=== PATIENT | male | born 1985 | race Hispanic/Latino ===

== ENCOUNTER 2019-08-03 08:26 | Inpatient (IN) | payer OTHER ==
[~2019-08-03] VITALS: Ht 182.9 cm; Wt 100.5 kg
[2019-08-03] MEDS ORDERED: SODIUM CHLORIDE 0.9% 1000ML 1,000 ML IV ONE (09:19)
[2019-08-03] MEDS ORDERED: ACETAMINOPHEN 325 MG TAB ONE (09:19)
[2019-08-03 09:32] LABS: BASOPHILS % (AUTO) 0.3 % (0.0-5.0); EOSINOPHILS % (AUTO) 0.8 % (0.0-8.0); HEMATOCRIT 34.1 % (42-54); MEAN CORPUSCULAR HEMOGLOBIN 27.8 pg (27.0-33.0); MEAN CORPUSCULAR HGB CONC 33.7 g/dL (32.0-36.0); MEAN CORPUSCULAR VOLUME 82.6 fL (79-99); MONOCYTES % (AUTO) 6.5 % (3.0-13.0); NEUTROPHILS % (AUTO) 82.7 % (40.0-77.0); PLATELET COUNT (AUTO) 258 K/uL (130-400); RED BLOOD CELL COUNT(AUTO) 4.13 MIL/uL (4.50-6.20); RED CELL DISTRIBUTION WIDTH 13.2 % (11.0-15.5)
[2019-08-03 09:52] LABS: CREATININE 1.6 mg/dL (0.5-1.5); POTASSIUM 3.6 mmol/L (3.5-5.1)
[2019-08-03 09:56] LABS: ALBUMIN 1.9 g/dL (3.5-5.0); BILIRUBIN,TOTAL 0.5 mg/dL (0.2-1.0); TOTAL PROTEIN, SERUM 8.1 g/dL (6.0-8.3)
[2019-08-03] MEDS ORDERED: ZOSYN 3.375GM+NS 50ML 50 ML IV ONE (10:46)
[2019-08-03] MEDS: LACTATED RINGERS 1000ML 1,000 ML IV SCH (11:06)
[2019-08-03] MEDS ORDERED: LACTULOSE 20 GM/30 ML UDCUP PO PRN (11:15)
[2019-08-03] MEDS ORDERED: NITROGLYCERIN 0.4 MG SL TAB SL PRN (11:15)
[2019-08-03] MEDS ORDERED: MAG HYDROX/AL HYDROX/SIMETH ES 30 ML SUSP UDCUP PO PRN (11:15)
[2019-08-03] MEDS ORDERED: VANCOMYCIN PROTOCOL PER PHARMACY IV SCH (11:15)
[2019-08-03] MEDS ORDERED: ONDANSETRON HCL 4 MG/2 ML VIAL IV PRN (11:15)
[2019-08-03] MEDS ORDERED: ACETAMINOPHEN 325 MG TAB PO PRN (11:15)
[2019-08-03] MEDS ORDERED: DIPHENHYDRAMINE HCL 25 MG CAPSULE PO PRN (11:15)
[2019-08-03] MEDS ORDERED: GUAIFENESIN-DM 200/20 MG 10 ML PO PRN (11:15)
[2019-08-03] MEDS ORDERED: DiphenhydrAMINE HCL 50 MG/ML VIAL IV PRN (11:15)
[2019-08-03] MEDS: ZOSYN 3.375GM+NS 50ML 50 ML IV SCH ×2 (11:15→20:39)
[2019-08-03] MEDS: INSULIN LISPRO 100 UNIT/ML 3ML SQ SCH ×2 (11:30→17:00)
[2019-08-03 11:38] LABS: HEMOGLOBIN A1C 9.2 % (4.0-6.0)
[2019-08-03 11:42] LABS: CRP QUANTITATIVE 322.8 mg/L (0.00-9.0)
[2019-08-03] MEDS ORDERED: VANCOMYCIN 1.5 GM in SODIUM CHLORIDE 0.9% 250 ML IV SCH (12:00)
[2019-08-03] MEDS: VANCOMYCIN 1.5 GM in SODIUM CHLORIDE 0.9% 250 ML IV SCH ×3 (12:00)
[2019-08-03] MEDS ORDERED: COMPOUND IV REFRIGERATED 1 EACH IVSOLN MISC PRN (12:15)
[2019-08-03] MEDS ORDERED: LACTATED RINGERS 1000ML 1,000 ML IV ONE (13:26)
[2019-08-03] MEDS ORDERED: ASPIRIN 325 MG TABLET ONE (15:22)
[2019-08-03 16:00] VITALS: BP 169/85
--- NOTE | 2019-08-03 17:45 | NUR ---
DR. CRUZ AND DR. MONTILLA AWARE OF CASE STATES WILL ROUND AT 1800
[2019-08-03 19:00] VITALS: BP 167/86
[2019-08-03] MEDS ORDERED: NIFEDIPINE ER 30 MG TAB PO SCH (20:00)
[2019-08-03] MEDS: HEPARIN SODIUM 5000UNIT/ML 1ML VIAL SQ SCH (20:37)
[2019-08-03] MEDS: FAMOTIDINE 20MG TAB 20 MG TAB PO SCH (20:38)
[2019-08-03] MEDS: INSULIN GLARGINE 100 UNITS/ML 10 ML VIAL SQ SCH (20:38)
[2019-08-03] MEDS: ASPIRIN 81MG TAB.CHEW PO SCH (21:40)
[2019-08-03 23:00] VITALS: BP 150/92
[2019-08-03] MEDS: ACETAMINOPHEN 325 MG TAB PO PRN (23:36)
[2019-08-03] MEDS ORDERED: VANCOMYCIN 1GM+NS 250ML 500 ML IV ONE (23:59)
[2019-08-04] VITALS (28 sets, daily range): BP systolic 117–149; BP diastolic 64–98
[2019-08-04] MEDS: VANCOMYCIN 1.5 GM in SODIUM CHLORIDE 0.9% 250 ML IV SCH ×3 (00:01→20:23)
[2019-08-04] MEDS: LACTATED RINGERS 1000ML 1,000 ML IV SCH ×3 (03:59→17:38)
[2019-08-04] MEDS: ZOSYN 3.375GM+NS 50ML 50 ML IV SCH ×3 (03:59→20:18)
[2019-08-04 04:29] LABS: BASOPHILS % (AUTO) 0.2 % (0.0-5.0); EOSINOPHILS % (AUTO) 2.1 % (0.0-8.0); LYMPHOCYTES % (AUTO) 13.9 % (21.0-51.0); MEAN CORPUSCULAR HEMOGLOBIN 27.8 pg (27.0-33.0); MEAN CORPUSCULAR HGB CONC 33.4 g/dL (32.0-36.0); MEAN CORPUSCULAR VOLUME 83.1 fL (79-99); NEUTROPHILS % (AUTO) 76.2 % (40.0-77.0); PLATELET COUNT (AUTO) 246 K/uL (130-400); RED BLOOD CELL COUNT(AUTO) 3.49 MIL/uL (4.50-6.20); RED CELL DISTRIBUTION WIDTH 13.2 % (11.0-15.5); WHITE BLOOD COUNT (AUTO) 9.7 K/uL (4.8-10.8)
[2019-08-04 04:41] LABS: ALBUMIN 1.5 g/dL (3.5-5.0); BILIRUBIN,TOTAL 0.4 mg/dL (0.2-1.0); CREATININE 1.3 mg/dL (0.5-1.5); POTASSIUM 3.3 mmol/L (3.5-5.1); TOTAL PROTEIN, SERUM 7.1 g/dL (6.0-8.3)
--- NOTE | 2019-08-04 04:55 | NUR ---
potassium: 3.3 Reported to on-call hospitalist ( NIKHIL Bhatti) with an order to place pt. on Half Potassium NPO protocol.
[2019-08-04] MEDS ORDERED: LIDOCAINE HCL-MPF 1% 2ML VIAL IV PRN ×2 (05:00→18:45)
[2019-08-04] MEDS ORDERED: POTASSIUM CHLORIDE 10MEQ/100ML 100 ML IV PRN ×2 (05:00→18:45)
[2019-08-04] MEDS ORDERED: POTASSIUM CHLORIDE 10MEQ/100ML 100 ML IV ONE (05:14)
[2019-08-04] MEDS ORDERED: LIDOCAINE HCL-MPF 1% 2ML VIAL ONE (05:15)
[2019-08-04] MEDS: INSULIN LISPRO 100 UNIT/ML 3ML SQ SCH ×3 (08:00→17:37)
[2019-08-04] MEDS: NIFEDIPINE ER 30 MG TAB PO SCH (08:02)
[2019-08-04] MEDS ORDERED: BUPIVACAINE/PF 0.5% 10ML VIAL ONE (08:05)
[2019-08-04] MEDS ORDERED: LIDOCAINE HCL 1% MDV 50ML VIAL ONE (08:05)
--- NOTE | 2019-08-04 08:45 | NUR ---
TO SURGERY, VIA BED ,WITH STAFF AT THE BEDSIDE FOR PROCEDURE TO HIS LT FOOT. REVIEW . CONSENT,
[2019-08-04] MEDS ORDERED: MIDAZOLAM HCL 1 MG/ML 2ML VIAL ONE (08:55)
[2019-08-04] MEDS ORDERED: GLYCOPYRROLATE 1 MG/5 ML SYRINGE ONE (08:56)
[2019-08-04] MEDS ORDERED: KETAMINE 50MG/ML SYRINGE 50 MG/ML DISP.SYRIN IV ONE (08:57)
[2019-08-04] MEDS ORDERED: PROPOFOL 1000 MG/100 ML 100 ML IV ONE (08:57)
[2019-08-04] MEDS: ASPIRIN 81MG TAB.CHEW PO SCH (09:00)
[2019-08-04] MEDS: FAMOTIDINE 20MG TAB 20 MG TAB PO SCH ×2 (09:00→20:24)
[2019-08-04] MEDS: HEPARIN SODIUM 5000UNIT/ML 1ML VIAL SQ SCH ×2 (09:00→20:20)
[2019-08-04] MEDS ORDERED: FENTANYL CITRATE PF 50 MCG/1 ML 2ML VIAL ONE (10:00)
--- NOTE | 2019-08-04 13:00 | NUR ---
PT BACK FROM SURGERY,,PT LEFTFOOT DRSG DRY AND CLEAN,DENIES ANY PAIN , POSTOP V/S STARTED AND MONITOR AND CALL LIGHT IN REACH.. BED LEVEL DOWN . .
--- NOTE | 2019-08-04 17:31 | NUR ---
INITIAL Met with pt this afternoon to discuss dcp. Pt mentions that he lives w his spouse and mother. He mentions that prior to admission he was independent w ambulation and ADLs. Pt states he owns a walker, wc and sh chair. Pt states that his brother provides transportation where needed. He mentions that he feels safe and comfortable to return home at ne. He mentions that he usually purchases his medication in [facility]. Low income packet provided to pt. CM to continue to follow and wait for Md recommendations. Addendum: 08/04/19 at 1733 by KARMA LEON Amended: Links added.
[2019-08-04] MEDS ORDERED: POTASSIUM CHLORIDE 10% ELIXIR 20 MEQ/15 ML UDCUP PO PRN (18:45)
[2019-08-04] MEDS: INSULIN GLARGINE 100 UNITS/ML 10 ML VIAL SQ SCH (20:24)
[2019-08-05] VITALS (13 sets, daily range): BP systolic 121–147; BP diastolic 71–93
[2019-08-05] MEDS: ACETAMINOPHEN 325 MG TAB PO PRN (00:38)
[2019-08-05] MEDS: ZOSYN 3.375GM+NS 50ML 50 ML IV SCH ×3 (04:04→21:20)
[2019-08-05 04:46] LABS: BASOPHILS % (AUTO) 0.2 % (0.0-5.0); EOSINOPHILS % (AUTO) 1.7 % (0.0-8.0); HEMATOCRIT 28.6 % (42-54); LYMPHOCYTES % (AUTO) 15.9 % (21.0-51.0); MEAN CORPUSCULAR HEMOGLOBIN 27.5 pg (27.0-33.0); MEAN CORPUSCULAR HGB CONC 33.2 g/dL (32.0-36.0); MEAN CORPUSCULAR VOLUME 82.9 fL (79-99); NEUTROPHILS % (AUTO) 75.5 % (40.0-77.0); PLATELET COUNT (AUTO) 307 K/uL (130-400); RED BLOOD CELL COUNT(AUTO) 3.45 MIL/uL (4.50-6.20); RED CELL DISTRIBUTION WIDTH 13.2 % (11.0-15.5); WHITE BLOOD COUNT (AUTO) 8.8 K/uL (4.8-10.8)
[2019-08-05 04:56] LABS: INR 1.02 (0.85-1.15)
[2019-08-05 05:01] LABS: ALBUMIN 1.6 g/dL (3.5-5.0); BILIRUBIN,TOTAL 0.4 mg/dL (0.2-1.0); CREATININE 1.3 mg/dL (0.5-1.5); POTASSIUM 3.3 mmol/L (3.5-5.1); TOTAL PROTEIN, SERUM 7.2 g/dL (6.0-8.3)
[2019-08-05] MEDS: LACTATED RINGERS 1000ML 1,000 ML IV SCH ×2 (05:21→13:06)
[2019-08-05] MEDS: ASPIRIN 81MG TAB.CHEW PO SCH (08:17)
[2019-08-05] MEDS: NIFEDIPINE ER 30 MG TAB PO SCH (08:17)
[2019-08-05] MEDS: INSULIN LISPRO 100 UNIT/ML 3ML SQ SCH ×3 (08:27→17:00)
[2019-08-05] MEDS: HEPARIN SODIUM 5000UNIT/ML 1ML VIAL SQ SCH ×2 (09:00→21:05)
[2019-08-05] MEDS: FAMOTIDINE 20MG TAB 20 MG TAB PO SCH ×2 (09:00→21:20)
[2019-08-05] MEDS: VANCOMYCIN 1.5 GM in SODIUM CHLORIDE 0.9% 250 ML IV SCH ×2 (09:28→21:20)
[2019-08-05] MEDS ORDERED: TETANUS/DIPHTHERIA TOXOID [ADULT] 0.5 ML VIAL IM SCH (13:15)
--- NOTE | 2019-08-05 15:50 | NUR ---
TO SHEARING MACHINE TENDER , VIA BED ,STAFF AT THE BEDSIDE , REVIEW CONSENT .
[2019-08-05] MEDS ORDERED: LIDOCAINE HCL 2% 20ML ONE (16:02)
[2019-08-05] MEDS ORDERED: NICARDIPINE HCL 25 MG/10 ML ML IV ONE (16:02)
[2019-08-05] MEDS ORDERED: MIDAZOLAM HCL 1 MG/ML 2ML VIAL ONE (16:02)
[2019-08-05] MEDS ORDERED: FENTANYL CITRATE PF 50 MCG/1 ML 2ML VIAL ONE (16:02)
[2019-08-05] MEDS ORDERED: IODIXANOL 320 MG/ML 100 ML VIAL ONE ×2 (16:02→17:31)
[2019-08-05] MEDS ORDERED: HEPARIN SODIUM 1000UNIT/ML 10ML VIAL ONE (16:02)
[2019-08-05] MEDS ORDERED: NITROGLYCERIN 2 MG/VIAL VIAL IV ONE (16:02)
[2019-08-05] MEDS ORDERED: CLOPIDOGREL BISULFATE 300 MG TAB ONE (17:27)
[2019-08-05] MEDS ORDERED: SODIUM CHLORIDE 0.9% 1000ML 1,000 ML IV SCH (18:45)
--- NOTE | 2019-08-05 18:50 | NUR ---
PT BACK FROM MANAGER CARE, AFTER A ARTERIO GRAM, INSERTION SITE TO RT GROIN, DRSG IN PLACE AND DRY NOTED NO HEMATOMA AROUND INSERTION SITE, SOFT TO TOUCH,, WARMTH RT AND LT FOOT NOTED. WITH PULSES ABLE TO MONITOR TO HIS RT FOOT. LT FOOT COVERED WITH HIS INTITAL DRSG FROM SURGERY ON 08/04/2019 . DRY AND CLEAN . DENIES ANY PAIN, REVIEW DRBethel ORDERS PT EDUCATION REGARDING LYING FLAT, POSITION , SETUP WITH THE IVF OF .9NS . AT 100 CC HR . . POSTOP V/S STARTED , BED LEVEL DOWN AND CALL LIGHT IN REACH..
[2019-08-05] MEDS: INSULIN GLARGINE 100 UNITS/ML 10 ML VIAL SQ SCH (21:13)
[2019-08-05] MEDS: POTASSIUM CHLORIDE 20 MEQ ERTAB PO PRN (21:21)
[2019-08-06] VITALS (7 sets, daily range): BP systolic 138–161; BP diastolic 75–96
[2019-08-06] MEDS ORDERED: MORPHINE SULFATE 2 MG/ML 1ML SYG IVP PRN (01:15)
[2019-08-06] MEDS ORDERED: HYDROMORPHONE HCL 2 MG/ML VIAL IVP PRN (01:15)
[2019-08-06] MEDS: ZOSYN 3.375GM+NS 50ML 50 ML IV SCH ×3 (03:24→19:36)
--- NOTE | 2019-08-06 04:02 | NUR ---
1 bag of normal saline given post surgery as ordered.
[2019-08-06] MEDS: LACTATED RINGERS 1000ML 1,000 ML IV SCH ×3 (04:03→15:06)
[2019-08-06 04:24] LABS: BASOPHILS % (AUTO) 0.2 % (0.0-5.0); EOSINOPHILS % (AUTO) 2.1 % (0.0-8.0); HEMATOCRIT 26.3 % (42-54); LYMPHOCYTES % (AUTO) 13.9 % (21.0-51.0); MEAN CORPUSCULAR HEMOGLOBIN 27.4 pg (27.0-33.0); MEAN CORPUSCULAR HGB CONC 33.1 g/dL (32.0-36.0); MONOCYTES % (AUTO) 6.8 % (3.0-13.0); NEUTROPHILS % (AUTO) 75.8 % (40.0-77.0); PLATELET COUNT (AUTO) 315 K/uL (130-400); RED BLOOD CELL COUNT(AUTO) 3.17 MIL/uL (4.50-6.20); RED CELL DISTRIBUTION WIDTH 13.2 % (11.0-15.5); WHITE BLOOD COUNT (AUTO) 8.5 K/uL (4.8-10.8)
[2019-08-06 04:48] LABS: ALBUMIN 1.4 g/dL (3.5-5.0); BILIRUBIN,TOTAL 0.5 mg/dL (0.2-1.0); CREATININE 1.1 mg/dL (0.5-1.5); MAGNESIUM 2.1 mg/dL (1.80-2.40); POTASSIUM 3.5 mmol/L (3.5-5.1); TOTAL PROTEIN, SERUM 6.9 g/dL (6.0-8.3)
[2019-08-06] MEDS: POTASSIUM CHLORIDE 20 MEQ ERTAB PO PRN ×2 (04:57→23:48)
[2019-08-06] MEDS: INSULIN LISPRO 100 UNIT/ML 3ML SQ SCH ×3 (05:37→17:26)
--- NOTE | 2019-08-06 06:31 | NUR ---
doctor madhu present at the bedside and changed patient's left foot dressing. he ordered physical therapy to treat and no weight on left foot.
--- NOTE | 2019-08-06 08:00 | NUR ---
PT AAO X 3 REVIEW CARE, LTFOOT DRSG DRY AND CLEAN, DENIES ANY PAIN
[2019-08-06] MEDS: NIFEDIPINE ER 30 MG TAB PO SCH (08:42)
[2019-08-06] MEDS: FAMOTIDINE 20MG TAB 20 MG TAB PO SCH ×2 (08:42→19:37)
[2019-08-06] MEDS: CLOPIDOGREL BISULFATE 75 MG TAB PO SCH (08:42)
[2019-08-06] MEDS: ASPIRIN 81MG TAB.CHEW PO SCH (08:42)
[2019-08-06] MEDS: VANCOMYCIN 1.5 GM in SODIUM CHLORIDE 0.9% 250 ML IV SCH ×2 (08:43→19:37)
[2019-08-06] MEDS: HEPARIN SODIUM 5000UNIT/ML 1ML VIAL SQ SCH ×2 (10:50→19:28)
--- NOTE | 2019-08-06 11:34 | NUR ---
NUTRITION EDUCATION RD attempt at Nutrition education x2. Attempt to contact via phone secondary to isolation protocol, no answer x 2. RD to place [facility] Nutrition education in Pt chart. RD to follow up. Addendum: 08/06/19 at [address] RD Amended: Links added.
--- NOTE | 2019-08-06 11:43 | NUR ---
RD NOTIFICATION Pt admitted with osteomyelitis and foot gangrene. Pt is s/p transmetatarsal amputation per EMR. Diet advanced to Heart Healthy. No report of GI distress. RD to monitor PO intake. Pt with Contact isolation; RD attempt at Tele-Nutrition education x2-no answer. Recommend 75gm CCD diet modification Recommend Cecil BID, 500mg Vit C (QD), 220mg ZnSO4 (QD) for wound healing support x2 attempts at Tele-Nutrition Education, no answer. RD to place Education materials in Pt chart Recommend 60mL ProMod QD RD to continue to monitor. Please notify as additional nutrition concerns arise. Thank you. Addendum: 08/06/19 at [address] RD Amended: Links added.
--- NOTE | 2019-08-06 11:50 | NUR ---
BLOOD SUGAR OF 99, PT HAS HUMALOG .5 UNITS . SQ SCHELD DOSE. STATED IF HE COULD SKIP . THIS DOSE, .STATED THAT HE FEEL FUNNY. CONT TO MONITOR .AND SEE WHAT IT IS THIS PM .
[2019-08-06] MEDS: INSULIN GLARGINE 100 UNITS/ML 10 ML VIAL SQ SCH (19:29)
--- NOTE | 2019-08-06 20:31 | NUR ---
doctor lozano at the bedside. he used doppler to check patient's left dorsalis pedis pulse at 2+. he will speak with doctor meyer about discharge. plavix and aspirin for 3 months
[2019-08-06] MEDS: ACETAMINOPHEN 325 MG TAB PO PRN (23:48)
[2019-08-07] MEDS: LACTATED RINGERS 1000ML 1,000 ML IV SCH ×2 (03:39→13:29)
[2019-08-07 04:00] VITALS: BP 136/78
[2019-08-07] MEDS: ZOSYN 3.375GM+NS 50ML 50 ML IV SCH (05:00)
[2019-08-07] MEDS: INSULIN LISPRO 100 UNIT/ML 3ML SQ SCH ×3 (05:42→16:17)
[2019-08-07 06:09] LABS: HEMATOCRIT 26.1 % (42-54); MEAN CORPUSCULAR HEMOGLOBIN 27.6 pg (27.0-33.0); MEAN CORPUSCULAR VOLUME 83.7 fL (79-99); PLATELET COUNT (AUTO) 312 K/uL (130-400); RED BLOOD CELL COUNT(AUTO) 3.12 MIL/uL (4.50-6.20); RED CELL DISTRIBUTION WIDTH 13.3 % (11.0-15.5); WHITE BLOOD COUNT (AUTO) 7.6 K/uL (4.8-10.8)
[2019-08-07 06:21] LABS: ALBUMIN 1.5 g/dL (3.5-5.0); BILIRUBIN,TOTAL 0.3 mg/dL (0.2-1.0); CREATININE 1.2 mg/dL (0.5-1.5); POTASSIUM 3.7 mmol/L (3.5-5.1); TOTAL PROTEIN, SERUM 6.9 g/dL (6.0-8.3)
[2019-08-07 07:02] LABS: EOSINOPHILS % (MANUAL) 3 % (1-6); LYMPHOCYTES % (MANUAL) 23 % (22-44); MAN.DIFF COMMENT-IMPRESSION MANUAL DIFFERENTIAL; MONOCYTES % (MANUAL) 6 % (2-9); PLATELET MORPHOLOGY COMMENT ADEQUATE; SEGMENTED NEUTROPHILS % 68 % (40-70)
[2019-08-07 08:03] VITALS: BP 143/82
[2019-08-07] MEDS: NIFEDIPINE ER 30 MG TAB PO SCH (09:06)
[2019-08-07] MEDS: CLOPIDOGREL BISULFATE 75 MG TAB PO SCH (09:06)
[2019-08-07] MEDS: ASPIRIN 81MG TAB.CHEW PO SCH (09:06)
[2019-08-07] MEDS: FAMOTIDINE 20MG TAB 20 MG TAB PO SCH ×2 (09:06→20:14)
[2019-08-07] MEDS: VANCOMYCIN 1.5 GM in SODIUM CHLORIDE 0.9% 250 ML IV SCH (09:07)
[2019-08-07] MEDS: HEPARIN SODIUM 5000UNIT/ML 1ML VIAL SQ SCH ×2 (09:14→20:17)
[2019-08-07 11:51] VITALS: BP 140/82
[2019-08-07] MEDS: CEFTRIAXONE SODIUM 1 GM IVP SCH (13:29)
[2019-08-07 16:25] VITALS: BP 150/82
[2019-08-07 20:00] VITALS: BP 140/80
[2019-08-07] MEDS: INSULIN GLARGINE 100 UNITS/ML 10 ML VIAL SQ SCH (20:16)
[2019-08-07] MEDS: ACETAMINOPHEN 325 MG TAB PO PRN (20:18)
[2019-08-07 23:40] VITALS: BP 117/60
[2019-08-08] MEDS: LACTATED RINGERS 1000ML 1,000 ML IV SCH (01:10)
--- NOTE | 2019-08-08 01:40 | NUR ---
wound care done with saline, xeroform gauze, betadine cast, 4 x 4's, kerlex, and lucía wrap on left foot. pictures taken and placed on the chart.
[2019-08-08 04:06] VITALS: BP 135/78
[2019-08-08 08:18] VITALS: BP 145/82
[2019-08-08] MEDS: CEFTRIAXONE SODIUM 1 GM IVP SCH (09:15)
[2019-08-08] MEDS: CLOPIDOGREL BISULFATE 75 MG TAB PO SCH (09:15)
[2019-08-08] MEDS: FAMOTIDINE 20MG TAB 20 MG TAB PO SCH (09:15)
[2019-08-08] MEDS: NIFEDIPINE ER 30 MG TAB PO SCH (09:15)
[2019-08-08] MEDS: ASPIRIN 81MG TAB.CHEW PO SCH (09:15)
[2019-08-08] MEDS: HEPARIN SODIUM 5000UNIT/ML 1ML VIAL SQ SCH (09:21)
[2019-08-08 11:21] VITALS: BP 147/82
--- NOTE | 2019-08-08 14:00 | NUR ---
DR MONTILLA/DC THIS NURSE CALLED X2/LEFT MESSAGE FOR REGARDIIING WOUND CARE FOR TEACCHING. PENDING CB
--- NOTE | 2019-08-08 17:11 | NUR ---
DISCHARGE EDUCATION MOTHER REUBEN DE LA ROSA AT BEDSIDE. NO RETURNED CALL FROM DR MONTILLA. PT AND MOTHER TAUGHT ON CURRENT WOUND CARE REGIMEN: BETADINE CAST. MOTHER VERBALIZED AND DEMONSTRATED UNDERSTANDING . EDUCATED ON IMPORTACE OF HANDWASHING, NONWEIGHT BEARING STATUS AND MONITORING INCISION FOR INFECTION. PER PT AND MOM, PT HAS WALKER AT HOME. CM TO PROVIDE GOOD RX COUPONS FOR MEDICATIONS. BOTH PARTIES VERBALIZED UNDERSTANDING. INSTRUCTIONS ON DISCHARGE APPT FOR DR MONTILLA ALSO UNDERSTOOD
--- NOTE | 2019-08-08 17:29 | NUR ---
ASKED TO HELP WITH DC MEDICATIONS BY MD- WENT OVER LIST OF MEDS WITH PATIENT-PLAVIX $15, AUGMENTIN $18, NIFEDIPINE $12, METFORMIN $4 ASPIRIN $1; AT THIS TIME THE PATIENT'S MOM IS ASKING PRIMARY RN X3 WHY HER SON CANNOT GO TO THE WOUND CARE CENTER, THAT SHE HAS ANOTHER SON THAT GOES EVERY DAY FOR INFECTED FINGERS. CM DID NOT RECIEVE ORDERS/RECOMMENDATION FROM PODIATRY OR PMD FOR PATIENT TO GO TO WOUND CARE CENTER- ORDER HERE WAS FOR BETADINE CAST DAILY, PRIMARY RN GAVE WOUND CARE INSTRUCTIONS TO MOM. Addendum: 08/08/19 at 1742 by ALEISHA SHAW RN CM Amended: Links added.
== END 2019-08-08 17:56 | disposition home or self-care (01) | DRG 239 ==
LOC: EDH 08:26 → EDHIP 08:27 → 3CH 17:01
PROVIDERS: ADMIT Family Medicine; ATTEND Family Medicine
PROC: 0Y6N0ZB Detachment at Left Foot, Partial 2nd Ray, Open Approach (ICD-10-PCS; 2019-08-04)
PROC: 0Y6N0ZC Detachment at Left Foot, Partial 3rd Ray, Open Approach (ICD-10-PCS; 2019-08-04)
PROC: 0Y6N0Z9 Detachment at Left Foot, Partial 1st Ray, Open Approach (ICD-10-PCS; principal; 2019-08-04 09:40)
PROC: 047Q3Z1 Dilation of Left Anterior Tibial Artery using Drug-Coated Balloon, Percutaneous Approach (ICD-10-PCS; 2019-08-05)
PROC: B41GYZZ Fluoroscopy of Left Lower Extremity Arteries using Other Contrast (ICD-10-PCS; 2019-08-05)
PROC: B41FYZZ Fluoroscopy of Right Lower Extremity Arteries using Other Contrast (ICD-10-PCS; 2019-08-05)
PROC: 3E0234Z Introduction of Serum, Toxoid and Vaccine into Muscle, Percutaneous Approach (ICD-10-PCS; 2019-08-05)
DX: E11.52 Type 2 diabetes mellitus with diabetic peripheral angiopathy with gangrene (principal); A48.0 Gas gangrene; M72.6 Necrotizing fasciitis; L03.116 Cellulitis of left lower limb; N17.9 Acute kidney failure, unspecified; M86.9 Osteomyelitis, unspecified; E11.69 Type 2 diabetes mellitus with other specified complication; E11.65 Type 2 diabetes mellitus with hyperglycemia; E11.621 Type 2 diabetes mellitus with foot ulcer; E78.5 Hyperlipidemia, unspecified; G47.00 Insomnia, unspecified; I10 Essential (primary) hypertension; K59.00 Constipation, unspecified; Z79.4 Long term (current) use of insulin; Z91.14 Patient's other noncompliance with medication regimen; Z91.19 Patient's noncompliance with other medical treatment and regimen; Z23 Encounter for immunization
CPT/HCPCS: 36415; 37228; 71045; 73630; 73718; 75716; 80053; 80061; 80202; 82010; 82306; 82948; 83036; 83605; 83735; 85025; 85347; 85610; 85651; 86140; 86850; 86900; 86901; 87040; 87070; 87076; 87077; 87186; 87205; 88305; 88311; 90714; 93005; 93925; 94760; 97039; 99156; 99157; A4606; C1760; C1769; C1893; C1894; G0378; J0696; J1644; J2250; J2543; J2704; J3010; J3370; J3490; J7030; J7050; J7120; Q9967

== ENCOUNTER 2021-09-30 17:11 | Emergency (ER) | payer BC ==
[~2021-09-30] VITALS: Ht 182.9 cm; Wt 113.4 kg
[2021-09-30 17:41] LABS: BASOPHILS % (AUTO) 0.4 % (0.0-5.0); EOSINOPHILS % (AUTO) 0.6 % (0.0-8.0); HEMATOCRIT 35.5 % (42-54); LYMPHOCYTES % (AUTO) 7.9 % (21.0-51.0); MEAN CORPUSCULAR HEMOGLOBIN 29.6 pg (27.0-33.0); MEAN CORPUSCULAR HGB CONC 34.9 g/dL (32.0-36.0); MEAN CORPUSCULAR VOLUME 84.7 fL (79-99); MONOCYTES % (AUTO) 6.3 % (3.0-13.0); NEUTROPHILS % (AUTO) 84.4 % (40.0-77.0); PLATELET COUNT (AUTO) 214 K/uL (130-400); RED BLOOD CELL COUNT(AUTO) 4.19 MIL/uL (4.50-6.20); RED CELL DISTRIBUTION WIDTH 12.5 % (11.0-15.5); WHITE BLOOD COUNT (AUTO) 11.3 K/uL (4.8-10.8)
[2021-09-30 17:55] LABS: APPEARANCE,URINE CLEAR (CLEAR); BILIRUBIN,URINE NEGATIVE (NEGATIVE); COLOR,URINE YELLOW (YELLOW); GLUCOSE, URINE (UA) >=1000 mg/dL (NEGATIVE); KETONES,URINE NEGATIVE (NEGATIVE); LEUKOCYTE ESTERASE ,URINE NEGATIVE (NEGATIVE); NITRATE,URINE NEGATIVE (NEGATIVE); OCCULT BLOOD,URINE SMALL (NEGATIVE); PH,URINE 5.5 (5.0-8.0); PROTEIN,URINE >=300 mg/dL (NEGATIVE); UROBILINOGEN,URINE 0.2 mg/dL (0.2-1.0)
[2021-09-30 17:57] LABS: CREATININE 2.7 mg/dL (0.5-1.5); POTASSIUM 4.5 mmol/L (3.5-5.1)
[2021-09-30 17:59] LABS: ALBUMIN 3.5 g/dL (3.5-5.0); TOTAL PROTEIN, SERUM 7.7 g/dL (6.0-8.3)
[2021-09-30] MEDS ORDERED: 0.9%NACL 1000ML 1,000 ML IV ONE (18:00)
[2021-09-30 18:03] LABS: BACTERIA,URINE None Seen /HPF (None Seen); MUCUS,URINE None Seen LPF (None Seen); SQUAMOUS EPITHELIAL CELL,UR Rare /HPF (0-2); WBC,URINE 0-1 /HPF (0-1)
[2021-09-30 18:04] LABS: AMPHET/METH SCREEN,URINE NEGATIVE (NEGATIVE); BARBITURATE SCREEN, URINE NEGATIVE (NEGATIVE); BENZODIAZEPINES SCREEN,URINE NEGATIVE (NEGATIVE); CANNABINOID SCREEN,URINE POSITIVE (NEGATIVE); COCAINE SCREEN,URINE POSITIVE (NEGATIVE); OPIATE SCREEN,URINE NEGATIVE (NEGATIVE); PHENCYCLIDINE SCREEN,URINE NEGATIVE (NEGATIVE)
[2021-09-30 19:12] VITALS: BP 120/67
[2021-09-30] MEDS ORDERED: BACI30OI6 TP (19:15)
[2021-09-30] MEDS ORDERED: MORPHINE 2 MG SYG IVP ONE (19:30)
[2021-09-30] MEDS ORDERED: ONDANSETRON 4MG INJ IVP ONE (19:30)
== END 2021-09-30 19:54 | disposition home or self-care (01) ==
LOC: EDH 17:11
DX: S80.812A Abrasion, left lower leg, initial encounter (principal); R07.89 Other chest pain; E11.65 Type 2 diabetes mellitus with hyperglycemia; N28.9 Disorder of kidney and ureter, unspecified; E78.00 Pure hypercholesterolemia, unspecified; F19.10 Other psychoactive substance abuse, uncomplicated; I10 Essential (primary) hypertension; F17.200 Nicotine dependence, unspecified, uncomplicated; X58.XXXA Exposure to other specified factors, initial encounter; Y93.89 Activity, other specified; Y92.89 Other specified places as the place of occurrence of the external cause; Y99.8 Other external cause status
CPT/HCPCS: 99284; 96374; 71045; 96361; 96375; 84484 ×2; 80053; 80305; 85025; 36415; 93005; 81001; J7030; J2405